=== PATIENT | male | born 1990 | race African-American/Black ===

== ENCOUNTER 2018-02-04 03:09 | Emergency (ER) | payer SELFPAY ==
[~2018-02-04] VITALS: Ht 180.3 cm; Wt 65.0 kg
[~2018-02-04 03:09] MED LIST: ZANTAC150 MG PO
[2018-02-04 03:37] LABS: HEMATOCRIT 44.4 % (38.0-50.0); HEMOGLOBIN 15.4 G/DL (12.5-16.6); MCHC 34.7 G/DL (30.0-36.0); MCV 89.3 FL (86-99); PLATELET COUNT 230 K/uL (156-360); RBC DIS.WIDTH-CV 12.9 % (11.8-14.6); RBC DIS.WIDTH-SD 42.3 % (39-53); RED BLOOD COUNT 4.97 M/uL (4.00-5.50); WHITE BLOOD COUNT 8.5 K/uL (4.1-10.2)
[2018-02-04 03:48] LABS: CHLORIDE 105 mEq/L (99-109); POTASSIUM 3.3 mEq/L (3.7-5.4); SODIUM 141 mEq/L (136-147)
[2018-02-04 03:49] LABS: GLUCOSE 122 mg/dL (70-99)
[2018-02-04 03:53] LABS: GFR ESTIMATE (CALCULATED) > 59 mL/min/ (58.99-99999)
[2018-02-04 03:54] LABS: UREA NITROGEN (BUN) 11 mg/dL (9-23)
[2018-02-04 04:01] LABS: TROP-I INTERPRETATION NEGATIVE; TROPONIN-I 0.01 ng/mL (0.0-0.30)
[2018-02-04 04:22] VITALS: BP 134/78
== END 2018-02-04 04:35 | disposition home or self-care (01) ==
LOC: EME → EDBD 03:09 → EME 03:09
PROVIDERS: Emergency Medicine
DX: R07.9 Chest pain, unspecified (principal); K29.00 Acute gastritis without bleeding; F17.200 Nicotine dependence, unspecified, uncomplicated
CPT/HCPCS: 71045; 80048; 84484; 85027; 93005; 99281; 99285

== ENCOUNTER 2018-04-01 11:09 | Emergency (ER) | payer SELFPAY ==
[~2018-04-01] VITALS: Ht 180.3 cm; Wt 61.7 kg
[2018-04-01] MEDS ORDERED: NAPROXEN500 MG PO (13:08)
[2018-04-01] MEDS ORDERED: FUTURO RESTORI1 EACH MC (13:10)
[2018-04-01 13:21] VITALS: BP 126/80
== END 2018-04-01 13:22 | disposition home or self-care (01) ==
LOC: EME 11:09
DX: M79.604 Pain in right leg (principal); I83.891 Varicose veins of right lower extremity with other complications; I80.01 Phlebitis and thrombophlebitis of superficial vessels of right lower extremity; F17.200 Nicotine dependence, unspecified, uncomplicated
CPT/HCPCS: 93971; 99281; 99283